=== PATIENT | male | born 2000 | race Two or more races ===

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

== ENCOUNTER 2023-01-10 18:44 | Emergency (ER) | payer SELFPAY | END 2023-01-10 20:30 | disposition left against medical advice (07) | LOC: ER 18:48 | DX: T14.8XXA Other injury of unspecified body region, initial encounter (principal); Z53.21 Procedure and treatment not carried out due to patient leaving prior to being seen by health care provider; X58.XXXA Exposure to other specified factors, initial encounter; Y93.89 Activity, other specified; Y92.89 Other specified places as the place of occurrence of the external cause; Y99.8 Other external cause status ==